=== PATIENT | female | born 1985 | race Caucasian/White ===

== ENCOUNTER 2016-11-21 09:08 | Inpatient (IN) | payer OTHER ==
[~2016-11-21] VITALS: Ht 160 cm; Wt 48.0 kg
[2016-11-21] MEDS ORDERED: AMOX1TAB64 PO (09:42)
[2016-11-21 09:57] LABS: HEMATOCRIT 40.8 % (34.6-47.8); HEMOGLOBIN 13.9 g/dL (11.7-16.4); WHITE BLOOD COUNT 6.8 x10^3/uL (3.4-10)
[2016-11-21] MEDS ORDERED: SODIUM CHLORIDE FLUSH 10ML SYR IVF ONE (11:00)
[2016-11-21 11:27] LABS: ASPARTATE AMINO TRANSFERASE 14 U/L (15-37); BLOOD UREA NITROGEN 10 mg/dL (7-18)
[2016-11-21 11:28] LABS: IS PT STATUS REG ER OR PRE ER? YES
[2016-11-21] MEDS ORDERED: OMNIPAQUE 350 MG/ML, 100ML BOTTLE ONE (11:32)
[2016-11-21] MEDS ORDERED: ENOXAPARIN 40 MG/0.4 ML SQ SCH (13:00)
[2016-11-21] MEDS ORDERED: GUAIFENESIN/DM 200-20MG, 10ML UDC PO PRN (13:00)
[2016-11-21] MEDS: ACETAMINOPHEN 325 MG TABLET PO PRN (17:36)
[2016-11-21 18:47] VITALS: BP 101/68
[2016-11-22] MEDS: ACETAMINOPHEN 325 MG TABLET PO PRN (00:08)
[2016-11-22 01:50] VITALS: BP 95/58
[2016-11-22 07:08] VITALS: BP 101/62
[2016-11-22] MEDS ORDERED: IBUP-1221 PO (12:25)
[2016-11-22 13:32] VITALS: BP 93/57
== END 2016-11-22 15:20 | disposition home or self-care (01) | DRG 204 ==
LOC: ED 10:08 → EDIP 12:30 → 3NE 13:40
PROVIDERS: ADMIT Internal Medicine; ATTEND Internal Medicine
DX: R07.81 Pleurodynia (principal); Z68.1 Body mass index [BMI] 19.9 or less, adult; D47.3 Essential (hemorrhagic) thrombocythemia; R63.4 Abnormal weight loss; R70.0 Elevated erythrocyte sedimentation rate; R91.8 Other nonspecific abnormal finding of lung field; Z87.01 Personal history of pneumonia (recurrent); Z80.7 Family history of other malignant neoplasms of lymphoid, hematopoietic and related tissues; Z77.120 Contact with and (suspected) exposure to mold (toxic); Z83.3 Family history of diabetes mellitus; Z88.6 Allergy status to analgesic agent
CPT/HCPCS: 36415; 71275; 80053; 81003; 83605; 83880; 84145; 84443; 84484; 84703; 85025; 85651; 87040; 93005; 99285; Q9967

== ENCOUNTER 2016-11-24 07:37 | Day surgery (SDC) | payer OTHER ==
[~2016-11-24] VITALS: Ht 160 cm; Wt 46.9 kg
[~2016-11-24 07:37] MED LIST: AMOX1TAB64 PO; IBUP-1221 PO
[2016-11-24] MEDS ORDERED: MIDAZOLAM 1 MG/ML, 5ML ONE (08:06)
[2016-11-24] MEDS ORDERED: NALOXONE 1 MG/ML, 2ML ONE (08:06)
[2016-11-24] MEDS ORDERED: FLUMAZENIL 0.1 MG/1 ML, 5ML ONE (08:06)
[2016-11-24] MEDS ORDERED: FENTANYL PF 100 MCG/2ML ONE ×2 (08:06)
[2016-11-24] MEDS ORDERED: SODIUM CHLORIDE 0.9% 1,000 ML IV SCH (08:24)
[2016-11-24] MEDS ORDERED: LIDOCAINE 2%, 20ML ONE (08:28)
[2016-11-24 08:45] VITALS: BP 102/70
== END 2016-11-24 11:50 | disposition home or self-care (01) ==
LOC: OUT 07:37
PROVIDERS: ATTEND Emergency Medicine
DX: J98.4 Other disorders of lung (principal); J18.9 Pneumonia, unspecified organism; Z88.6 Allergy status to analgesic agent
CPT/HCPCS: 32405; 77012; 87015; 87070; 87102; 87116; 87205; 87206; 88305; 99156; 99157; J2250; J3010; J3490; J7030; 87075; J2310